=== PATIENT | female | born 2000 | race Caucasian/White ===

== ENCOUNTER 2019-03-19 20:45 | Emergency (ER) | payer OTHER ==
[~2019-03-19] VITALS: Ht 154.9 cm; Wt 53.5 kg
[2019-03-20] MEDS ORDERED: ZOFRAN8 MG PO (02:23)
[2019-03-20] MEDS ORDERED: DICY20TA PO (02:23)
[2019-03-20] MEDS ORDERED: PEPCID AC20 MG PO (02:23)
== END 2019-03-20 02:30 | disposition home or self-care (01) ==
LOC: ER 20:45
DX: R11.2 Nausea with vomiting, unspecified (principal); E86.0 Dehydration

== ENCOUNTER 2020-08-01 03:21 | Emergency (ER) | payer OTHER ==
[~2020-08-01] VITALS: Ht 154.9 cm; Wt 53.5 kg
[~2020-08-01 03:21] MED LIST: DICY20TA PO; PEPCID AC20 MG PO; ZOFRAN8 MG PO
[2020-08-01] MEDS ORDERED: OMEPRAZOLE MAGN20 MG (03:45)
[2020-08-01] MEDS ORDERED: CYPROHEPTAD2 MG/5 ML (03:46)
== END 2020-08-01 13:09 | disposition home or self-care (01) ==
LOC: EMR PED 03:21 → ER 03:38 → EMR PED 13:09
DX: N83.291 Other ovarian cyst, right side (principal); R10.84 Generalized abdominal pain; E86.0 Dehydration

== ENCOUNTER 2022-04-24 18:35 | Emergency (ER) | payer OTHER ==
[~2022-04-24] VITALS: Ht 157.5 cm; Wt 54.9 kg
[~2022-04-24 18:35] MED LIST changes: +CYPROHEPTAD2 MG/5 ML; +OMEPRAZOLE MAGN20 MG
== END 2022-04-24 23:03 | disposition home or self-care (01) ==
LOC: ER 18:35
DX: N39.0 Urinary tract infection, site not specified (principal); J45.909 Unspecified asthma, uncomplicated

== ENCOUNTER 2022-12-03 16:22 | Emergency (ER) | payer OTHER ==
[~2022-12-03] VITALS: Ht 154.9 cm; Wt 59.0 kg
[2022-12-03] MEDS ORDERED: AVIANE-28 TABL1 EACH PO (16:27)
== END 2022-12-03 18:28 | disposition home or self-care (01) ==
LOC: ER 16:23
DX: U07.1 COVID-19 (principal)

== ENCOUNTER 2023-10-24 09:16 | Emergency (ER) | payer OTHER ==
[~2023-10-24] VITALS: Ht 154.9 cm; Wt 56.7 kg
[~2023-10-24 09:16] MED LIST changes: +AVIANE-28 TABL1 EACH PO
[2023-10-24] MEDS ORDERED: BUSPIRONE HCL7.5 MG (09:21)
[2023-10-24] MEDS ORDERED: PRISTIQ ER50 MG PO (09:21)
[2023-10-24] MEDS ORDERED: KETOROLAC TROMETHAMINE 60 MG VIAL IM ONE ×4 (09:56→14:58)
[2023-10-24] MEDS ORDERED: FAMOTIDINE/PF 20 MG/2 ML VIAL ONE (09:56)
[2023-10-24] MEDS ORDERED: ONDANSETRON HCL 2 MG/ML VIAL ONE (09:56)
[2023-10-24] MEDS ORDERED: 0.9 % SODIUM CHLORIDE 1,000 ML IV ONE (10:00)
[2023-10-24] MEDS ORDERED: FAMOtidine 10 MG/ML (4ML VIAL) IV ONE (10:00)
[2023-10-24] MEDS ORDERED: ONDANSETRON HCL 2 MG/ML VIAL IV ONE (10:00)
[2023-10-24 10:37] LABS: HEMATOCRIT 39.4 % (36.0-45.00); HEMOGLOBIN 13.3 g/dL (12.0-15.00); MEAN CELL VOLUME 92.1 fL (80.00-100.00); MEAN CORPUSCULAR HEMOGLOBIN 31.1 pg (27.00-32.0); MEAN CORPUSCULAR HGB CONC 33.8 g/dl (32.0-36.0); PLATELET COUNT 179 K/uL (150-450); RED BLOOD COUNT 4.27 M/uL (4.00-6.00); RED CELL DISTRIBUTION WIDTH 14.1 % (11.5-14.5)
[2023-10-24 11:20] LABS: ALBUMIN 4.1 gm/dL (3.4-5.0); ALKALINE PHOSPHATASE 74 U/L (50-136); ALT/SGPT 61 U/L (12-78); AMYLASE 49 U/L (25-115); ANION GAP 10 (10.0-20.0); AST/SGOT 40 U/L (15-37); BILIRUBIN TOTAL 0.95 mg/dL (0.3-1.2); BLOOD UREA NITROGEN 16 mg/dL (7-18); BUN CREA RATIO 22 (7.0-25.0); CALCIUM 9.9 mg/dL (8.5-10.1); CARBON DIOXIDE 28 mEq/L (21-32); CHLORIDE 105 mmol/L (98-107); CREATININE SERUM 0.72 mg/dL (0.55-1.02); GFR 100.38; GLOBULINA 3.7 G/DL (2.4-3.5); GLUCOSE FASTING 94 mg/dL (65-100); LIPASE 29 U/L (13-75); OSMOLALITY SERUM 278 MOSM/KG (275-295); POTASSIUM 3.62 mEq/L (3.5-5.1); SODIUM 139 mmol/L (136-145); TOTAL PROTEIN 7.8 gm/dL (6.4-8.2)
[2023-10-24 11:23] LABS: HCG QUANTITATIVE < 1 mUI/mL (1-3)
[2023-10-24 15:25] LABS: URINE APPEARANCE Clear; URINE BILIRRUBIN Negative (NEGATIVE); URINE BLOOD Negative; URINE COLOR Yellow; URINE GLUCOSE Negative (NEGATIVE); URINE KETONE Negative (NEGATIVE); URINE LEUKOCYTE Negative; URINE NITRATE Negative; URINE PROTEIN Negative (NEGATIVE); URINE UROBILINOGEN 0.2 E.U./dl
[2023-10-24 15:29] LABS: URINE BACTERIA 3119.7 uL (0.0-1933); URINE EPITHELIAL CELLS 75.5 uL (0.0-38.8); URINE WBC 49.4 uL (0.0-23.2)
[2023-10-24 16:21] LABS: URINE RBC 0.7 uL (0.0-20.8)
[2023-10-24] MEDS ORDERED: PEPCID AC20 MG PO (16:23)
[2023-10-24] MEDS ORDERED: RIZATRIPTAN5 MG PO (16:23)
[2023-10-24] MEDS ORDERED: ZOFRAN8 MG PO (16:23)
[2023-10-24] MEDS ORDERED: PROBIOTIC & AC1 EACH PO (16:23)
== END 2023-10-24 17:08 | disposition home or self-care (01) ==
LOC: ER 09:18
PROVIDERS: General Practice
DX: K52.9 Noninfective gastroenteritis and colitis, unspecified (principal); R10.2 Pelvic and perineal pain; R10.9 Unspecified abdominal pain
CPT/HCPCS: 36415; 74177; Q9965

== ENCOUNTER → 2024-04-25 | Emergency (ER) | payer OTHER ==
[~2024-04-25] VITALS: Ht 157.5 cm; Wt 54.4 kg
[~2024-04-25] MED LIST changes: +BUSPIRONE HCL7.5 MG; +CEPHALEXIN500 M1 PO; +PRISTIQ ER50 MG PO; +PROBIOTIC & AC1 EACH PO; +RIZATRIPTAN5 MG PO
== END | disposition home or self-care (01) ==
LOC: ER 15:16
DX: L60.9 Nail disorder, unspecified (principal)